=== PATIENT | female | born 1995 | race Caucasian/White ===

== ENCOUNTER 2019-05-30 18:45 | Emergency (ER) | payer BC, SELFPAY ==
[2019-05-30 18:51] VITALS: BP 137/82; PULSE 109; RESP 18; TEMP 36.6; O2SAT 98; BMI 23.1
--- NOTE | 2019-05-30 18:57 | ED_ITS ---
Entered by Caty Avilez, acting as scribe for HPI - Animal Bite General: Chief Complaint: Animal Bite Stated Complaint: dog bite Time Seen by Provider: 05/30/19 18:57 Source: patient Mode of arrival: ambulatory Limitations: no limitations History of Present Illness: HPI narrative: 23 yo female presents to ED with complaints of multiple bites from a dog. The patient states one of her dogs got its jaw caught in another one's collar and the patient tried to separate them. The patient received a large bite to her upper forearm, a smaller puncture wound to her lower forearm, and a scratch to her L hand. complaint: animal bite Onset (ago): minute(s) (30) Animal: dog (2) Description of animal: household pet Mechanism: bite and scratch Location - Extremities: Left: hand and Right: forearm Pain description: sharp and constant Context: animals fighting Associated symptoms: Reports wound drainage; Deny chills, fever(s) or headache(s) Treatments prior to arrival: wound dressing(s) Review of Systems Const: Denies: fever or chills Eyes: Denies: change in vision ENMT: Denies: throat pain or mouth pain Card: Denies: chest pain Resp: Denies: shortness of breath GI: Denies: abdominal pain, nausea, vomiting or diarrhea : Denies: difficulty urinating Musc: Denies: back pain or joint pain Skin/Breast: Denies: rash Neuro: Denies: headache or behavioral changes Psych: Denies: depression Endo: Denies: excessive urination Ashok/Lymph: Denies: easy bruising All/Imm: Denies: hives PFSH ED PFSH: Statuses (acute, chronic, etc) shown below reflect problem list status as previously entered and may not be historically accurate Social History Smoking and tobacco status: never smoked Physical Exam Const: COMMON NORMALS: no apparent distress and oriented x3 HENMT: COMMON NORMALS: normocephalic HEAD & SCALP: normocephalic Eye: COMMON NORMALS: PERRL PUPIL: Yes PERRL Chest: COMMONS NORMALS: inspection of chest normal Resp: COMMON NORMALS: normal respiratory effort and no retractions Cardio: COMMON NORMALS: regular rate RATE: regular rate Extremity: COMMON NORMALS: full ROM Neuro: COMMON NORMALS: oriented x3 Psych: COMMON NORMALS: mental status grossly normal Skin: NARRATIVE SKIN EXAM: 3 cm laceration to right forearm no tendon or nerve involvement Procedures Laceration Laceration 1: Site: upper extremity Side (If applicable): left Size (cm): 3 Description: linear Local Anesthetic: lidocaine 1% Amount of anesthesia used (mL): 10 Pre-repair: wound explored and irrigated extensively Skin layer closed with: other (5 kelsy) Course Vital Signs: Vital signs: Vital Signs Temperature 97.9 F 05/30/19 18:51 Pulse Rate 109 H 05/30/19 18:51 Respiratory Rate 18 05/30/19 18:51 Blood Pressure 137/82 05/30/19 18:51 Pulse Oximetry 98 05/30/19 18:51 MDM - Animal Bite MDM Narrative: Medical decision making narrative: Patient presents here with a dog bite. Patient also has a laceration that was repaired with kelsy. Patient placed on Augmentin and is to have kelsy removed in 10 days. Discharge Plan Discharge Patient Disposition: Home, Self-Care Clinical Impression: Dog bite Qualifiers: Encounter type: initial encounter Qualified Code(s): W54.0XXA - Bitten by dog, initial encounter Condition: Stable Prescriptions: New Augmentin 875-125 mg tablet 1 tab PO BID Qty: 20 RF: 0 Discharge Orders: Discharge Order (Routine); Ordered 05/30/19 Ordered By: Deep Vanegas Referrals: Zohra Cain MD [Primary Care Provider] - Discharge Diet: Advance as tolerated Discharge Activity: Resume usual activity Patient Instructions: Animal Bite (ED) Activity Restrictions/Additional Instructions: staple removal in 10 days Coding Level of Care Code ED Cigar Tobacco Processing Supervisor for Chg Christopher The documentation recorded by the Fatmata beckman Valerie R accurately reflects the service I personally performed and the decisions made by Romina love Korby, MD
== END 2019-05-30 19:20 | disposition home or self-care (01) ==
LOC: ER 19:18
PROVIDERS: Emergency Provider Emergency Medicine
DX: S51.851A Open bite of right forearm, initial encounter (principal); W54.0XXA Bitten by dog, initial encounter
CPT/HCPCS: 12002; 99281

== ENCOUNTER → 2020-05-15 15:14 | Outpatient (BNVA) | payer BC, SELFPAY | PROVIDERS: Visit Provider Obstetrics & Gynecology | DX: Z32.01 Encounter for pregnancy test, result positive (principal) | CPT/HCPCS: 81025 ==

== ENCOUNTER → 2020-05-16 14:45 | Outpatient (BNVA) | payer BC, SELFPAY | PROVIDERS: Visit Provider Obstetrics & Gynecology | DX: Z34.90 Encounter for supervision of normal pregnancy, unspecified, unspecified trimester (principal) | CPT/HCPCS: 84702 ==

== ENCOUNTER → 2020-05-18 13:20 | Outpatient (BNVA) | payer BC, SELFPAY | PROVIDERS: Visit Provider Obstetrics & Gynecology | DX: Z34.90 Encounter for supervision of normal pregnancy, unspecified, unspecified trimester (principal) | CPT/HCPCS: 84702 ==

== ENCOUNTER → 2020-05-24 14:47 | Outpatient (BNVA) | payer BC, SELFPAY | PROVIDERS: Visit Provider Obstetrics & Gynecology | DX: Z34.90 Encounter for supervision of normal pregnancy, unspecified, unspecified trimester (principal) | CPT/HCPCS: 84702 ==

== ENCOUNTER → 2020-06-27 11:04 | Outpatient (BNVA) | payer BC, SELFPAY | PROVIDERS: Visit Provider Obstetrics & Gynecology | DX: Z34.90 Encounter for supervision of normal pregnancy, unspecified, unspecified trimester (principal); Z34.01 Encounter for supervision of normal first pregnancy, first trimester; Z34.80 Encounter for supervision of other normal pregnancy, unspecified trimester | CPT/HCPCS: 80307; 84315; 85027; 86592; 86762; 86803; 86850; 86900; 87086; 87340 ==

== ENCOUNTER → 2020-07-10 15:30 | Outpatient (BNVA) | payer BC, SELFPAY | PROVIDERS: Visit Provider Obstetrics & Gynecology | DX: O21.9 Vomiting of pregnancy, unspecified (principal); R11.0 Nausea; N83.202 Unspecified ovarian cyst, left side; Z3A.12 12 weeks gestation of pregnancy; Z12.4 Encounter for screening for malignant neoplasm of cervix | CPT/HCPCS: 84315; 87491; 87591; 88175 ==

== ENCOUNTER 2020-08-27 21:24 | Emergency (ER) | payer BC, SELFPAY ==
[2020-08-27 21:46] VITALS: BP 109/67; PULSE 116; RESP 16; TEMP 36.9; O2SAT 98; BMI 26.6
[2020-08-27 22:26] VITALS: BP 117/82; PULSE 112; RESP 18; O2SAT 99
[2020-08-27] MEDS: ondansetron 2 mg/ML SDV 2 mL 4 MG IVP (22:36)
[2020-08-27] MEDS: sodium chloride 0.9% 1,000 ML 999 ML IV (22:36)
--- NOTE | 2020-08-27 22:40 | W.ED.NAVMDI ---
HPI - Nausea/Vomiting/Diarrhea General: Chief complaint: Nausea/Vomiting/Diarrhea Stated complaint: n/v, 19 weeks preg Time Seen by Provider: 08/27/20 22:26 History of Present Illness: HPI Narrative: Patient states she woke up this morning vomiting. Did have some diarrhea also. Took promethazine and did not help she has been nauseous all day. Not able to keep much down. Did have nausea and vomiting up to 17 weeks her has been better last 2 weeks. MD elicited complaint: nausea, vomiting and diarrhea Onset (ago): hour(s) Description of vomiting: watery Description of diarrhea: watery Associated nausea: Yes Associated abdominal pain: No Associated symtoms: Reports nausea and other (Urine has strong smell today); Denies anxiety, change in vision, chest pain or headache(s) Review of Systems Narrative: 19 weeks Const: Denies: fever(s), chills or body aches Eyes: Denies: change in vision or blurry vision ENMT: Denies: throat pain or nasal congestion Card: Denies: chest pain or dyspnea on exertion Resp: Denies: dyspnea, productive cough or non-productive cough GI: Reports: nausea and diarrhea : Reports: urinary frequency Musc: Denies: extremity pain Skin/Breast: Denies: rash Neuro: Denies: headache(s) Psych: Denies: anxiety or depression Ashok/Lymph: Denies: easy bruising PFSH ED PFSH: Medical History No pertinent past medical history Denies hypertension, diabetes, asthma, DVT/PE, seizures PCP: None Surgical History Hx of wisdom tooth extraction (~2014) Family History Grandmother Breast cancer Paternal--dx age unknown Denies family history of Colon cancer Ovarian cancer Diabetes Heart disease Hypercholesteremia Hypertension Uterine cancer Thyroid disease Stroke Physical Exam Const: COMMON NORMALS: no acute distress, average body habitus and patient oriented x3 HENMT: COMMON NORMALS: normocephalic HEAD & SCALP: normal to inspection and normocephalic FACE & SINUS: normal facial exam Eye: COMMON NORMALS: conjunctivae normal GENERAL EYE: appearance normal, both eyes and all related structures CONJUNCTIVA: Yes conjunctivae normal Neck/C-Spine: COMMON NORMALS: no JVD Chest: COMMONS NORMALS: normal inspection of the chest Resp: COMMON NORMALS: normal respiratory effort and clear to auscultation bilaterally AUSCULTATION: clear to auscultation bilaterally Cardio: COMMON NORMALS: no JVD and regular rhythm RATE: tachycardic RHYTHM: regular rhythm GI: COMMON NORMALS: Normal to inspection, nondistended, normoactive bowel sounds present Extremity: COMMON NORMALS: normal to inspection and full ROM Neuro: COMMON NORMALS: patient oriented x3 Course Vital Signs: Vital signs: Vital Signs Temperature 98.4 F 08/27/20 21:46 Pulse Rate 96 08/27/20 23:26 Respiratory Rate 18 08/27/20 23:26 Blood Pressure 110/64 08/27/20 23:26 Pulse Oximetry 100 08/27/20 23:26 MDM - Nausea/Vomiting/Diarrhea MDM Narrative: Medical decision making narrative: Discussed labs and presentation signs symptoms of patient with Dr. Wilkerson. Given patient another liter of normal saline fluid. Patient will be on antibiotics will follow up with the OB doc this week and definitely has appointment on next Friday. Lab Data: Labs: Lab Results 08/27/20 08/27/20 08/27/20 Range/Units 22:06 23:25 23:25 WBC 8.6 (4.0-10.0) 10^3/ uL RBC 3.60 L (4.1-5.3) 10^6/u L Hgb 11.0 L (11.5-15.3) g/dL Hct 32.8 L (37.0-47.0) % MCV 91.1 (81-99) fL MCH 30.6 (28.0-34.0) pg MCHC 33.5 (30.0-36.0) g/dL RDW 12.9 (12.1-15.1) % Plt Count 157 (130-400) 10^3/c mm MPV 9.4 (7.4-10.4) fL Neut % (Auto) 90.9 % Lymph % (Auto) 6.0 % [place] % (Auto) 2.1 % Eos % (Auto) 0.1 % Baso % (Auto) 0.3 % Neut # (Auto) 7.85 H (1.8-7.7) 10^3/u L Lymph # (Auto) 0.5 L (0.8-4.8) 10^3/u L [place] # (Auto) 0.2 (0.2-0.9) 10^3/u L Eos # (Auto) 0.0 (0.0-0.8) 10^3/u L Baso # (Auto) 0.0 (0.0-0.1) 10^3/u L Nucleated RBC % (a uto) 0 % Nucleated RBCs # 0.0 /100WBC Sodium 135 L (136-145) mmol/L Potassium 3.8 (3.5-5.1) mmol/L Chloride 103 (98-107) mmol/L Carbon Dioxide 20 L (22-29) mmol/L Anion Gap 15.8 (5-19) BUN 8 (6-20) mg/dL Creatinine 0.4 L (0.5-0.9) mg/dL GFR Calculation 197.8 H (90-130) mL/min Glucose 97 (65-115) mg/dL Calculated Osmolal ity 278 L (285-295) mOsm/k g Calcium 7.8 L (8.5-10.5) mg/dL Urine Color Yellow (Yellow) Urine Appearance Sl hazy (CLEAR) Urine pH 5 (5-7) Ur Specific Gravit y 1.025 (1.005-1.030) Urine Protein Neg (Negative) Urine Glucose (UA) Norm (Normal) Urine Ketones 3+ H (Negative) Urine Blood Neg (Negative) Urine Nitrate Negative (Negative) Urine Bilirubin 1+ H (Negative) Urine Urobilinogen 1 H (Negative) mg/dL Ur Leukocyte Teresa ase Trace H (Negative) Urine RBC 5-10 H (0-2) /hpf Urine WBC 15-25 H (0-5) /hpf Ur Squamous Epith Cells >100 H (0-5) /hpf Amorphous Sediment 1+ /hpf Urine Bacteria 4+ H (NONE) /hpf Urine Mucus 2+ /hpf Discharge Plan Discharge Prescriptions: No Action Gummies 400 mcg-35 mg- 25 mg-5 mg tablet,chewable PO DAILY RF: 0 promethazine 25 mg tablet 25 mg PO Q6H Qty: 84 RF: 0 Coding Level of Care Code ED Director Digital Sales for Chg Fwd Exam Comprehensive
[2020-08-27 22:45] VITALS: BP 107/75; PULSE 100; RESP 18; O2SAT 100
--- NOTE | 2020-08-27 22:53 | PC.NURSE ---
heart tone 161
[2020-08-27 22:56] LABS: Add Urine Microscopic? YES; Bilirubin Urine 1+ (Negative); Blood Urine Neg (Negative); Glucose Urine UA Norm (Normal); Ketones Urine 3+ (Negative); Leukocyte Esterase Urine Trace (Negative); Nitrate Urine Negative (Negative); Protein Urine Neg (Negative); Specific Gravity, Urine 1.025 (1.005-1.030); Urine Appearance SL Hazy (CLEAR); Urine Color Yellow (Yellow); Urobilinogen Urine 1 mg/dL (Negative); pH Urine 5 (5-7)
[2020-08-27 23:02] LABS: Bacteria Urine 4+ /hpf; Mucus Urine 2+ /hpf; Squamous Epithelial Cell Urine >100 /hpf (0-5); WBC Urine 15-25 /hpf (0-5)
[2020-08-27 23:03] LABS: Add Urine Culture? No; Amorphous Sediment Urine 1+ /hpf
[2020-08-27] MEDS: nitrofurantoin SR (BID) 100 mg Capsule PO (23:21)
[2020-08-27 23:26] VITALS: BP 110/64; PULSE 96; RESP 18; O2SAT 100
[2020-08-27 23:29] LABS: Basophils % 0.3 %; Eosinophils % 0.1 %; Hematocrit 32.8 % (37.0-47.0); Lymphocytes # 0.5 10^3/uL (0.8-4.8); Mean Corpuscular HGB Conc 33.5 g/dL (30.0-36.0); Mean Corpuscular Hemoglobin 30.6 pg (28.0-34.0); Mean Corpuscular Volume 91.1 fL (81-99); Mean Platelet Volume 9.4 fL (7.4-10.4); Monocytes # 0.2 10^3/uL (0.2-0.9); Monocytes % 2.1 %; Neutrophils # 7.85 10^3/uL (1.8-7.7); Neutrophils % 90.9 %; Nucleated Red Blood Cells % 0 %; Platelet Count 157 10^3/cmm (130-400); Red Cell Distribution Width 12.9 % (12.1-15.1); White Blood Count 8.6 10^3/uL (4.0-10.0)
[2020-08-27 23:49] LABS: Anion Gap 15.8 (5-19); Blood Urea Nitrogen 8 mg/dL (6-20); Calcium 7.8 mg/dL (8.5-10.5); Carbon Dioxide 20 mmol/L (22-29); Chloride 103 mmol/L (98-107); Glomerular Filtration Rate 197.8 mL/min (90-130); Glucose 97 mg/dL (65-115); Osmolality Calculated 278 mOsm/kg (285-295); Potassium 3.8 mmol/L (3.5-5.1); Sodium 135 mmol/L (136-145)
[2020-08-28 00:30] VITALS: BP 103/63; PULSE 94; RESP 18; O2SAT 99
[2020-08-28] MEDS: sodium chloride 0.9% 1,000 ML 999 ML IV (00:31)
== END 2020-08-28 01:13 | disposition home or self-care (01) ==
PROVIDERS: Emergency Provider Nurse Practitioner Family
DX: O26.892 Other specified pregnancy related conditions, second trimester (principal); R11.2 Nausea with vomiting, unspecified; Z3A.19 19 weeks gestation of pregnancy
CPT/HCPCS: 80048; 81001; 85025; 96361; 96374; 99283; J2405; J7030

== ENCOUNTER → 2020-10-05 15:15 | Outpatient (BNVA) | payer BC, SELFPAY | PROVIDERS: Visit Provider Nurse Practitioner Women's Health | DX: Z34.02 Encounter for supervision of normal first pregnancy, second trimester (principal) | CPT/HCPCS: 84315; 87086 ==

== ENCOUNTER → 2020-11-01 10:34 | Outpatient (BNVA) | payer BC, SELFPAY | PROVIDERS: Visit Provider Obstetrics & Gynecology | DX: Z34.02 Encounter for supervision of normal first pregnancy, second trimester (principal) | CPT/HCPCS: 82950; 84315; 85025 ==

== ENCOUNTER → 2020-12-25 13:05 | Outpatient (BNVA) | payer BC, SELFPAY | PROVIDERS: Visit Provider Obstetrics & Gynecology | DX: Z34.02 Encounter for supervision of normal first pregnancy, second trimester | CPT/HCPCS: 84315; 87081 ==

== ENCOUNTER 2021-01-09 03:00 | Outpatient (CLI) | payer BC, SELFPAY ==
[2021-01-09] VITALS (27 sets, daily range): BP systolic 110–143; BP diastolic 65–88; PULSE 59–120; RESP 18; O2SAT 97–99; BMI 30.2
--- NOTE | 2021-01-09 05:00 | PM.ACPR ---
Procedure/Consent Procedure Narrative: NONSTRESS TEST: Place of test: [facility] Indication: 25-year-old 1 para 0 at 38 weeks and 2 days, contractions/abdominal pain Date and time of test: 01/09/2021---5 AM Baseline: 140 Variability: Moderate variability Accelerations: Accelerations present Decelerations: No decelerations Tocometry: Contractions every 6 to 8 minutes INTERPRETATION: NST reactive, continue kick counts
== END 2021-01-09 05:42 | disposition home or self-care (01) ==
LOC: OPOB 03:01 → OBGYN 03:04
PROVIDERS: Visit Provider Obstetrics & Gynecology
DX: O26.893 Other specified pregnancy related conditions, third trimester (principal); O47.1 False labor at or after 37 completed weeks of gestation; Z3A.38 38 weeks gestation of pregnancy; R10.9 Unspecified abdominal pain
CPT/HCPCS: 59025; 84315; 99211

== ENCOUNTER 2021-01-09 21:50 | Inpatient (IN) | payer BC, SELFPAY ==
[2021-01-09] VITALS (41 sets, daily range): BP systolic 107–144; BP diastolic 53–92; PULSE 56–116; RESP 16–18; TEMP 36.4–36.6; O2SAT 97–99; BMI 29.8
[2021-01-09 22:14] LABS: Basophils % 0.2 %; Hematocrit 36.2 % (37.0-47.0); Hemoglobin 11.8 g/dL (11.5-15.3); Lymphocytes # 1.8 10^3/uL (0.8-4.8); Lymphocytes % 16.7 %; Mean Corpuscular HGB Conc 32.6 g/dL (30.0-36.0); Mean Corpuscular Hemoglobin 27.4 pg (28.0-34.0); Mean Corpuscular Volume 84.2 fl (81-99); Mean Platelet Volume 11.3 fL (7.4-10.4); Monocytes # 0.5 10^3/uL (0.2-0.9); Monocytes % 4.8 %; Neutrophils # 8.47 10^3/uL (1.8-7.7); Neutrophils % 77.8 %; Nucleated Red Blood Cells % 0 %; Platelet Count 182 10^3/cmm (130-400); Red Cell Distribution Width 13.2 % (12.1-15.1); White Blood Count 10.9 10^3/uL (4.0-10.0)
[2021-01-09] MEDS: lactated ringers 1,000 ML 999 ML IV (22:15)
[2021-01-09] MEDS: dextrose 5%-lactated ringers 1,000 ML 125 ML IV (22:43)
[2021-01-09] MEDS: fentaNYL 50 mcg/mL INJ 2mL IVP (22:43)
[2021-01-09] MEDS: ondansetron 2 mg/ML SDV 2 mL 4 MG IVP (22:56)
--- NOTE | 2021-01-09 23:02 | PM.OPHPUD ---
Labor & Delivery H&P Update Date of Procedure: January 09, 2021 Date H&P Performed: 01/09/21 H&P update information: I have reviewed H&P completed within last 30 days, I have examined patient prior to procedure and Changes to prior documentation as noted here Changes to previous documentation: Her cervix has changed to 5 cm dilation. She will be admitted in active labor Admission Diagnosis:
--- NOTE | 2021-01-09 23:11 | P.ANESASSM_ITS ---
Pre-Anesthetic Assessment Pre-Anesthetic Assessment: Height/Weight: Height 1.7 m Weight 78.925 kg Temp Pulse Resp BP Pulse Ox 97.9 F 77 16 140/79 98 01/09/21 22:18 01/09/21 23:08 01/09/21 22:43 01/09/21 23:07 01/09/21 23:08 Preop Diagnosis: Active Labor Proposed Procedure: Labor Epidural Familial anesthetic complications: none Was Beta Tex taken within 24 hours: N/A Was Clonidine taken within 24 hours: N/A Social: Social History: No alcohol and No tobacco Exam: Pre-Anes Outpt Exam: alert, oriented x 3 and clear to auscultation bilaterally Airway: Submandibular: WNL Cervical ROM: WNL MP: 2 Dentition: Full History/ROS: No significant history except as noted Pulmonary: Pulmonary: None reported CV/HEM: CV/HEM: None reported : : None reported Hepatic: Hepatic: None reported GI: GI: None reported Metabolic: Metabolic: None reported Musc/skel: Musc/skel: None reported Neuropsych: Neuropsych: None reported Anesthetic Plan: Anesthesia: Eval. for regional block Other: Labor Epidural Risk of > 500 ml blood loss (7ml/kg in children): No Meds/Allergies Current Medications: Current Medications Generic Name Dose Route Start Last Admin Trade Name Freq PRN Reason Stop Dose Admin Fentanyl 25 - 100 mcg 01/09/21 21:51 01/09/21 22:43 Fentanyl 50 Mcg/ Ml Inj 2ml IVP 25 mcg Q1H PRN Administration SEVERE PAIN Dextrose/Lactated Ringer's 1,000 mls @ 125 m ls/hr 01/09/21 21:51 01/09/21 22:43 Dextrose 5%-Lact ated Ringers IV 125 mls/hr .Q8H PRN Administration labor Ropivacaine 200 mg in 100 mls @ 13 mls/hr 01/09/21 21:52 01/09/21 23:03 Naropin Premix EPIDURAL 13 mls/hr .Q7H42M PRN Administration ANESTHESIA Lactated Ringer's 1,000 mls @ 999 m ls/hr 01/09/21 21:52 01/09/21 22:15 Lactated Ringers IV 999 mls/hr .Q1H1M PRN Administration See label comment s Ondansetron HCl 4 mg 01/09/21 21:51 01/09/21 22:56 Ondansetron 2 Mg /Ml Sdv 2 Ml IVP 4 mg Q4H PRN Administration NAUSEA AND VOMITI NG PFSH Anesthesia PFSH: Medical History No pertinent past medical history Denies hypertension, diabetes, asthma, DVT/PE, seizures PCP: None Surgical History Hx of wisdom tooth extraction (~2014) Family History Grandmother Breast cancer Paternal--dx age unknown Denies family history of Colon cancer Ovarian cancer Diabetes Heart disease Hypercholesteremia Hypertension Uterine cancer Thyroid disease Stroke Female Reproductive History: : 1 Data Anesthesia CBC & Chem 7: 01/09/21 22:05 Other Labs: Laboratory Results - last 48 hr 01/09/21 22:05 WBC 10.9 H RBC 4.30 Hgb 11.8 Hct 36.2 L MCV 84.2 MCH 27.4 L MCHC 32.6 RDW 13.2 Plt Count 182 MPV 11.3 H Neut % (Auto) 77.8 Lymph % (Auto) 16.7 [place] % (Auto) 4.8 Eos % (Auto) 0.0 Baso % (Auto) 0.2 Neut # (Auto) 8.47 H Lymph # (Auto) 1.8 [place] # (Auto) 0.5 Eos # (Auto) 0.0 Baso # (Auto) 0.0 Nucleated RBC % (auto) 0 Nucleated RBCs # 0.0 Cardiac Studies: No Data to Display
--- NOTE | 2021-01-09 23:14 | ANES.PROC ---
Anesthesia Procedures Procedure/Date: 01/09/21 Epidural: Time Out Performed: Yes Consents Signed: Procedure Consent Consent: requested by attending/covering physician, from patient, risks and benefits reviewed and patient agrees to proceed Lumbar Level: L3-L4 Epidural position: sitting Epidural procedure: sterile prep of area, 1% lidocaine to numb the area, negative for paresthesia passed, test dose given, 1.5% xylocaine 1:200k epi, placed PCEA, no systemic response, sterile dressing applied, L.U.D. no apparent complications and 0.2% Ropiavacaine @ mls/hr (11) Additional Comments: ERICA 6.5 cm catheter threaded to 13 cm, no bolus given.
[2021-01-10] VITALS (135 sets, daily range): BP systolic 99–142; BP diastolic 55–93; PULSE 54–120; RESP 16–17; TEMP 36–37; O2SAT 98–99
[2021-01-10] MEDS: dextrose 5%-lactated ringers 1,000 ML 125 ML IV (06:45)
[2021-01-10] MEDS: ondansetron 2 mg/ML SDV 2 mL 4 MG IVP (06:57)
[2021-01-10] MEDS: metoclopramide 5 mg/mL SDV 2 mL 10 MG IV (07:32)
[2021-01-10] MEDS: oxytocin 30 UNIT/500 ML BAG 600 UNIT IV (08:03)
--- NOTE | 2021-01-10 08:11 | PM.DELIVERY ---
Delivery Note: Date of delivery: January 10, 2021 Pre-delivery diagnoses: active labor at 38 3/7 weeks Post-delivery diagnoses: same-delivered Procedure: Op report anesthesia: Epidural Delivering Physician: vaishnavi Estimated blood loss (mL): 10 Findings: term female in the cephalic presentation Pre-Delivery Course: The patient was admitted in active labor. At 5 cm, she received an epidural for painmanagement. She had complete cervical dilation and began pushing Delivery: The patient had complete cervical dilation and began to push. The head delivered in the REZA position over an intact perineum under epidural anesthesia. The nose and mouth were bulb suctioned. The shoulders and body delivered atraumatically. The baby was placed onto the mother's abdomen. The cord was clamped and cut. Cord blood was obtained. The placenta delivered spontaneously. It was inspected and found to be intact. Inspection of the perineum revealed small vaginal lacerations bilaterally that were hemostatic. Estimated blood loss 10 mL. Apgars on baby were 8 at 1 minute and 9 at 5 minutes. Weight of baby is 6 pounds 2 ounces. Mother and baby were stable post delivery. Coding Level of Care Code Acute Head Of Precision Targeting for Jimmy White
[2021-01-10] MEDS: docusate sodium 100 mg Capsule PO ×2 (09:25→18:25)
[2021-01-10] MEDS: benzocaine-menthol 78 gm Canister 1 SPRAY TOPICAL (09:25)
[2021-01-10] MEDS: prenatal vitamin Capsule 1 CAP PO (09:26)
[2021-01-10] MEDS: ibuprofen 800 mg tablet PO ×3 (09:26→21:04)
[2021-01-10 20:28] LABS: Hematocrit 30.9 % (37.0-47.0); Hemoglobin 10.2 g/dL (11.5-15.3); Mean Corpuscular Volume 84.9 fl (81-99); Mean Platelet Volume 11.2 fL (7.4-10.4); Platelet Count 135 10^3/cmm (130-400); Red Blood Count 3.64 10^6/uL (4.1-5.3); Red Cell Distribution Width 13.2 % (12.1-15.1); White Blood Count 11.4 10^3/uL (4.0-10.0)
[2021-01-11 04:15] VITALS: BP 115/72; PULSE 86
[2021-01-11 04:16] VITALS: TEMP 36.2
[2021-01-11] MEDS: docusate sodium 100 mg Capsule PO (09:38)
[2021-01-11] MEDS: ibuprofen 800 mg tablet PO (09:39)
[2021-01-11] MEDS: prenatal vitamin Capsule 1 CAP PO (09:39)
[2021-01-11 09:41] VITALS: BP 125/78; PULSE 107; TEMP 36.1
--- NOTE | 2021-01-11 10:08 | PM.DCS ---
Discharge Providers Date of Admission: 01/09/21 21:50 Date of Discharge: January 11, 2021 Attending Provider at Admission: Nirmal Hammonds MD Attending Provider at Discharge: Nirmal Hammonds MD Diagnoses at Discharge Discharge Diagnosis (1) state: Status: Acute Reason for Visit Reason for Visit: contractions Hospital Course Hospital Course The patient was admitted in active labor. She had spontaneous delivery of a term . She did well and was ready for discharge. Physical Exam Narrative: EXAM NARRATIVE: The patient is doing well this morning. No concerns. She is ambulating without difficulty. She is tolerating a regular diet. She has minimal lochia and pain is well controlled. Resp: COMMON NORMALS: normal respiratory effort EFFORT & INSPECTION: Yes able to speak in complete sentences GI: COMMON NORMALS: Soft to palpation and non-tender PALPATION: Yes Soft to palpation Extremity: COMMON NORMALS: no clubbing, cyanosis or edema and no calf tenderness Urinary Catheter Management^: [place] Latex: Cath Placed During This Visit: yes, but has since been removed by the nurse Reason for Continuing Indwelling Catheter: Decision to DC Catheter Urinary Catheter Date of Insertion: 01/10/21 Urinary Catheter Time of Insertion: 00:32 Date Urinary Catheter Removed: 01/10/21 Time Urinary Catheter Discontinued: 07:05 Discharge Data Data Completed and Pending: Labs from last 24 hours 01/10/21 20:07 WBC 11.4 H RBC 3.64 L Hgb 10.2 L Hct 30.9 L MCV 84.9 MCH 28.0 MCHC 33.0 RDW 13.2 Plt Count 135 MPV 11.2 H Vitals: Last Vital Signs Temp 97.0 F L 01/11/21 09:41 Pulse 107 H 01/11/21 09:41 Resp 17 01/10/21 22:00 BP 125/78 01/11/21 09:41 Pulse Ox 98 01/10/21 06:57 Discharge Plan Discharge Patient Disposition: Home Condition: Stable Prescriptions: No Action No Known Home Medications RF: 0 Discharge Orders: Discharge Order (Routine); Ordered 01/11/21 Ordered By: Leonie Naranjo Referrals: Rosendo Perez MD [Physician] - 6 Weeks ( will call with 6 week post- appointment. ) Patient Instructions: Vitamins (By mouth), Depression (GEN), Pre-eclampsia and Eclampsia (DC), Bleeding (DC), OB Discharge Report, OB Food/Drug Interaction Guide, Opioid Safety, OB Home Care, OB Proud Parent Packet, OB Vaginal Deliveries - [facility] Discharge Attestations Time Spent in Discharge Care*: less than 30 min Quality Metrics Clinical Quality Measures During this hospital stay, did patient experience: None Coding Level of Care Code Acute Chg FW DC note Diagnoses state Z39.2
[2021-01-11 12:52] VITALS: BP 125/80; PULSE 76; TEMP 36.2
[2021-01-11 13:05] VITALS: BP 125/80; PULSE 76; RESP 16; TEMP 36.2
== END 2021-01-11 13:05 | disposition home or self-care (01) | DRG 807 ==
PROVIDERS: Obstetrics & Gynecology; Admitting Provider Obstetrics & Gynecology; Visit Provider Obstetrics & Gynecology
DX: O34.83 Maternal care for other abnormalities of pelvic organs, third trimester (principal); Z37.0 Single live birth; N83.202 Unspecified ovarian cyst, left side; Z3A.38 38 weeks gestation of pregnancy; O75.89 Other specified complications of labor and delivery; K21.9 Gastro-esophageal reflux disease without esophagitis
CPT/HCPCS: 36415; 51702; 59025; 59409; 85025; 85027; 96374; 96375; 99211; J2405; J2765; J2795; J3010

== ENCOUNTER → 2021-03-07 16:12 | Outpatient (BNVA) | payer BC, SELFPAY | PROVIDERS: Visit Provider Obstetrics & Gynecology | DX: N83.292 Other ovarian cyst, left side (principal) | CPT/HCPCS: 76856 ==